=== PATIENT | male | born 1965 | race Hispanic/Latino ===

== ENCOUNTER 2017-04-19 15:43 | Emergency (ER) | payer OTHER ==
[2017-04-19] MEDS ORDERED: Adacel (T-DAP) 0.5 ML VIAL ONE (16:02)
[2017-04-19] MEDS ORDERED: Lidocaine 1% 20 ML MDV ONE (16:02)
[2017-04-19] MEDS ORDERED: Bacitracin Zinc 1 Packet ONE (16:22)
== END 2017-04-19 16:49 | disposition home or self-care (01) ==
LOC: BURERS 15:43
DX: S61.211A Laceration without foreign body of left index finger without damage to nail, initial encounter (principal); Z23 Encounter for immunization; W20.8XXA Other cause of strike by thrown, projected or falling object, initial encounter
CPT/HCPCS: 12002; 90471; 90715; J2001

== ENCOUNTER 2017-04-27 17:36 | Emergency (ER) | payer OTHER ==
[2017-04-27] MEDS ORDERED: Bacitracin Zinc 1 Packet ONE (17:57)
== END 2017-04-27 18:06 | disposition home or self-care (01) ==
LOC: BURERS 17:36
DX: S61.211D Laceration without foreign body of left index finger without damage to nail, subsequent encounter (principal)
CPT/HCPCS: 99282

== ENCOUNTER 2017-05-03 15:46 | Emergency (ER) | payer OTHER ==
[2017-05-03] MEDS ORDERED: Sulfameth/Trimethoprim DS 800-160mg TAB ONE (16:22)
== END 2017-05-03 16:23 | disposition home or self-care (01) ==
LOC: BURERS 15:46
DX: S61.211D Laceration without foreign body of left index finger without damage to nail, subsequent encounter (principal); L08.9 Local infection of the skin and subcutaneous tissue, unspecified